=== PATIENT | female | born 1975 | race African-American/Black ===

== ENCOUNTER 2017-07-10 00:36 | Emergency (ER) | payer SELFPAY ==
[~2017-07-10] VITALS: Ht 170.2 cm; Wt 91.0 kg
[~2017-07-10 00:36] MED LIST: HYDR-3533 PO
[2017-07-10 00:43] VITALS: BP 146/86; PULSE 77; RESP 16; TEMP 98.8; O2SAT 100
[2017-07-10 03:39] VITALS: RESP 16
[2017-07-10 03:53] LABS: AUTOMATED NEUTROPHIL # 4.7 TH/MM3 (1.8-7.7); BASOPHIL % 0.1 % (0.0-2.0); EOSINOPHIL # 0.4 TH/MM3 (0-0.4); EOSINOPHIL % 5.1 % (0.0-4.0); HEMATOCRIT 32.5 % (35.0-46.0); HEMOGLOBIN 10.2 GM/DL (11.6-15.3); LYMPH % 31.4 % (9.0-44.0); LYMPHOCYTE # 2.6 TH/MM3 (1.0-4.8); MEAN CELL VOLUME 73.4 FL (80.0-100.0); MEAN CORPUSCULAR HGB CONC 31.4 % (32.0-36.0); MEAN PLATELET VOLUME 8.6 FL (7.0-11.0); MONO % 7.2 % (0.0-8.0); MONOCYTE # 0.6 TH/MM3 (0-0.9); NEUT % 56.2 % (16.0-70.0); PLATELET COUNT 411 TH/MM3 (150-450); RED BLOOD COUNT 4.43 MIL/MM3 (4.00-5.30); WHITE BLOOD COUNT 8.4 TH/MM3 (4.0-11.0)
--- NOTE | 2017-07-10 03:53 | PD ---
HPI Chief Complaint: GI Complaint Time Seen by Provider: 03:25 Travel History International Travel<30 days: No Contact w/Intl Traveler<30days: No Traveled to known affect area: No History of Present Illness HPI The patient is a 42 year old female who presents to the [facility] emergency department with a history of nausea and vomiting that began just after midnight today. She reports that she had vomiting back to back 3-4 times. She reports that the emesis appeared to have blood in it in the toilet. She then noticed that she had a nose bleed predominately out of the right naris when she stood up. She denies any history of nose bleeds. The patient denies having any recent worsening problems with indigestion or heartburn. She does report having a history of peptic ulcer disease and acid reflux which she has recently managed with as needed [id number] acid reducers. She denies having any abdominal pain. On review of systems otherwise, she denies having any recent fevers, cough, congestion, neck pain, chest pain, shortness of breath , diarrhea, blood in her stool, weight loss, urinary symptoms, or neurologic symptoms. LMP: 06/14/17 She denies having a PCP. [facility] Past Medical History Narrative Medical The patient's past medical history is significant for asthma, diabetes mellitus , acid reflux, history of preeclampsia, history of peptic ulcer disease Asthma: Yes (as a child) Autoimmune Disease: No Blood Disorders: No Anxiety: No Depression: No Heart Rhythm Problems: No Cancer: No Cardiovascular Problems: No High Cholesterol: No Chemotherapy: No Chest Pain: No Congestive Heart Failure: No Diabetes: Yes Diminished Hearing: No Endocrine: No Gastrointestinal Disorders: Yes GERD: Yes (STATES HAD ENDOSCOPY) Glaucoma: No Genitourinary: No Hepatitis: No Hiatal Hernia: No Hypertension: Yes (preg induced) Immune Disorder: No Kidney Stones: Yes Musculoskeletal: No Neurologic: No Psychiatric: No Reproductive: Yes (PRE-ECLAMPSIA) Respiratory: Yes Myocardial Infarction: No Radiation Therapy: No Ulcer: Yes (PT HAD AN ENDOSCOPY ) Tetanus Vaccination: > 5 Years Influenza Vaccination: No ?: Not LMP: 06/14/17 : 2 Para: 2 Past Surgical History Narrative Surgical The patient's past surgical history is significant for 2. AICD: No Arteriovenous Shunt: No Section: Yes (X2) Genitourinary Surgery: No Insulin Pump: No Joint Replacement: No Pacemaker: No Other Surgery: No Social History Alcohol Use: No Tobacco Use: Yes (1/2 ppd.) Substance Use: No Allergies-Medications (Allergen,Severity, Reaction): Coded Allergies: No Known Allergies (Verified , 06/13/15) Reported Meds & Prescriptions Reported Meds & Active Scripts Active Lortab 5 mg/325 mg (Hydrocodone/Acetaminophen 5 mg/325 mg) 1 Tab 1 Tab PO Q6H PRN Review of Systems Except as stated in HPI: all other systems reviewed are Neg General / Constitutional: No: Fever Eyes: No: Visual changes HENT: Positive: Nosebleed, No: Headaches Cardiovascular: No: Chest Pain or Discomfort Respiratory: No: Shortness of Breath Gastrointestinal: Positive: Nausea, Vomiting, Hematemesis, No: Abdominal Pain, Indigestion Genitourinary: No: Dysuria Musculoskeletal: No: Pain Skin: No Rash Neurologic: No: Weakness Psychiatric: No: Depression Endocrine: No: Polydipsia Hematologic/Lymphatic: No: Easy Bruising Physical Exam Narrative General: The patient is a well-developed well-nourished male in no acute distress Head and Neck exam: Head is normocephalic atraumatic. Eyes: EOMI, pupils are equal round and reactive to light. Nose: Midline septum with pink mucous membranes with dried blood present in the right naris. Mouth: Dentition unremarkable. Moist mucus membranes. Posterior oropharynx is not erythematous. No tonsillar hypertrophy. Uvula midline. Airway patent. Neck: No palpable lymphadenopathy. No nuchal rigidity. No thyromegaly. Cardiovascular: Regular rate and rhythm without murmurs, gallops, or rubs. Lungs: Clear to auscultation bilaterally. No wheezes, rhonchi, or rales. Abdomen: Soft, without tenderness to palpation in all 4 quadrants of the abdomen. No guarding, rebound, or rigidity. Normal bowel sounds are audible. No tenderness on palpation of McBurney's point. Negative Mendez sign. Extremities: No clubbing, cyanosis, or edema. 2+ pulses in all 4 extremities. No calf tenderness on palpation. Back: No spinous process tenderness to palpation. No costovertebral angle tenderness to palpation. Neurologic Exam: Grossly nonfocal. Skin Exam: No rash noted. Intact skin that is warm and dry. Data Data Last Documented VS Vital Signs Date Time Temp Pulse Resp B/P (MAP) Pulse Ox O2 Delivery O2 Flow Rate FiO2 07/10/17 03:39 16 07/10/17 00:43 98.8 77 100 Room Air Orders Orders Electrocardiogram (07/10/17 03:25) Complete Blood Count With Diff (07/10/17 03:25) Comprehensive Metabolic Panel (07/10/17 03:25) Prothrombin Time / Inr (Pt) (07/10/17 03:25) Act Partial Throm Time (Ptt) (07/10/17 03:25) Lipase (07/10/17 03:25) Urinalysis - C+S If Indicated (07/10/17 03:25) Chest, Single Ap (07/10/17 03:25) Iv Access Insert/Monitor (07/10/17 03:25) Ecg Monitoring (07/10/17 03:25) Oximetry (07/10/17 03:25) Type And Screen (07/10/17 03:25) Ed Urine Pregnancytest Poc (07/10/17 03:25) Pantoprazole Inj (Protonix Inj) (07/10/17 04:15) Pantoprazole Inj (Protonix Inj) (07/10/17 04:15) Sodium Chlor 0.9% 1000 Ml Inj (Ns 1000 M (07/10/17 04:15) Ondansetron Inj (Zofran Inj) (07/10/17 04:15) Labs Laboratory Tests Test 07/10/17 03:10 07/10/17 03:40 Urine Color YELLOW Urine Turbidity CLEAR Urine pH 5.5 Urine Specific [place] 1.033 Urine Protein TRACE mg/dL Urine Glucose (UA) TRACE mg/dL Urine Ketones NEG mg/dL Urine Occult Blood NEG Urine Nitrite NEG Urine Bilirubin NEG Urine Urobilinogen 2.0 MG/DL Urine Leukocyte Esterase MOD Urine RBC LESS THAN 1 /hpf Urine WBC 2 /hpf Urine Squamous Epithelial Cells 4 /hpf Urine Bacteria RARE /hpf Urine Hyaline Casts 2 /lpf Urine Mucus FEW /lpf Microscopic Urinalysis Comment CULT NOT INDICATED White Blood Count 8.4 TH/MM3 Red Blood Count 4.43 MIL/MM3 Hemoglobin 10.2 GM/DL Hematocrit 32.5 % Mean Corpuscular Volume 73.4 FL Mean Corpuscular Hemoglobin 23.0 PG Mean Corpuscular Hemoglobin Concent 31.4 % Red Cell Distribution Width 16.0 % Platelet Count 411 TH/MM3 Mean Platelet Volume 8.6 FL Neutrophils (%) (Auto) 56.2 % Lymphocytes (%) (Auto) 31.4 % Monocytes (%) (Auto) 7.2 % Eosinophils (%) (Auto) 5.1 % Basophils (%) (Auto) 0.1 % Neutrophils # (Auto) 4.7 TH/MM3 Lymphocytes # (Auto) 2.6 TH/MM3 Monocytes # (Auto) 0.6 TH/MM3 Eosinophils # (Auto) 0.4 TH/MM3 Basophils # (Auto) 0.0 TH/MM3 CBC Comment DIFF FINAL Differential Comment Prothrombin Time 10.7 SEC Prothromb Time International Ratio 1.1 RATIO Activated Partial Thromboplast Time 25.5 SEC Blood Urea Nitrogen 14 MG/DL Creatinine 0.75 MG/DL Random Glucose 184 MG/DL Total Protein 7.9 GM/DL Albumin 3.7 GM/DL Calcium Level 8.6 MG/DL Alkaline Phosphatase 118 U/L Aspartate Amino Transf (AST/SGOT) 24 U/L Alanine Aminotransferase (ALT/SGPT) 24 U/L Total Bilirubin 0.5 MG/DL Sodium Level 138 MEQ/L Potassium Level 4.2 MEQ/L Chloride Level 105 MEQ/L Carbon Dioxide Level 24.4 MEQ/L Anion Gap 9 MEQ/L Estimat Glomerular Filtration Rate 104 ML/MIN Lipase 143 U/L MDM Medical Decision Making Medical Screen Exam Complete: Yes Emergency Medical Condition: Yes Medical Record Reviewed: Yes Interpretation(s) Last Impressions Chest X-Ray 07/10/17 0325 Signed Impressions: Service Date/Time: Monday, July 10, 2017 03:47 - CONCLUSION: No acute disease. Luis Richard MD Differential Diagnosis Epistaxis causing drainage down the back of her throat with nausea and vomiting , versus peptic ulcer disease, versus hemorrhagic esophagitis, versus viral syndrome Narrative Course During the course of the patient's emergency department visit, the patient's history, examination, and differential diagnosis were reviewed with the patient. The patient was placed on a sales account executive with oximetry and frequent blood pressure monitoring. The patient had IV access obtained and blood work sent for analysis. The patient was initially provided normal saline 1 L IV fluid bolus, Zofran 4 mg IV. The patient's laboratory studies were reviewed and remarkable for a white count of 8.4, hemoglobin 10.2 which is stable compared to previous evaluations, platelets are 411, 5.1 eosinophils are noted. CMP is remarkable for a glucose of 184, alk phos 118, lipase 143, PT 10.7, PTT 25.5, urinalysis shows moderate leukocyte esterase 2 WBCs, less than 1 RBC, rare bacteria, culture not indicated. Radiology studies were reviewed and remarkable for a chest x-ray that shows no evidence of acute cardiopulmonary disease. I suspect that the patient's nausea was related to having a nosebleed that was draining down the back of her throat and then precipitated vomiting at which time she noticed the right-sided epistaxis. The patient's bleeding has resolved at this time. The patient was instructed to push fluids and get plenty of rest. The patient is given a prescription for nausea medication. The patient will be discharged home. The patient is resting comfortably and feels better, is alert and in no distress. The patient's results and examination findings were discussed with the patient. The repeat examination is unremarkable and benign. The history, exam, diagnostic testing, and current condition do not suggest any significant pathology to warrant further testing, continued ED treatment, admission, or surgical evaluation at this point. The vital signs have been stable. The patient does not have uncontrollable pain, intractable vomiting, or other significant symptoms. The patient's condition is stable and appropriate for discharge. The patient will pursue further outpatient evaluation with a primary care physician or other designated or consulting physician as indicated in the discharge instructions. The patient expressed understanding and was agreeable with this plan. Diagnosis Primary Impression: Epistaxis Additional Impression: Vomiting Qualified Codes: R11.2 - Nausea with vomiting, unspecified Referrals: [facility] 2 days Primary Care Physician 2 days Patient Instructions: General Instructions, Nosebleed (ED) Med/Other Pt SpecificInfo: Prescription(s) given Scripts Ondansetron Odt (Zofran Odt) 4 Mg Tab 4 MG SL Q6HR Y for Nausea/Vomiting, #7 TAB 0 Refills Prov: Laura Hernandez MD 07/10/17 Disposition: 01 DISCHARGE HOME Condition: Stable Laura Hernandez MD Jul 10, 2017 03:53
--- NOTE | 2017-07-10 04:02 | RADRPT ---
EXAM DATE/TIME: 07/10/2017 03:47 [place] COMPARISON: No previous studies available for comparison. INDICATIONS : Vomiting blood. Short of breath. MEDICAL HISTORY : None. SURGICAL HISTORY : None. ENCOUNTER: Initial ACUITY: 1 day PAIN SCORE: 0/10 LOCATION: Bilateral chest FINDINGS: A single view of the chest demonstrates the lungs to be symmetrically aerated without evidence of mas s, infiltrate or effusion. The cardiomediastinal contours are unremarkable. Osseous structures are intact. CONCLUSION: No acute disease. Luis Richard MD on July 10, 2017 at 4:00 Board Certified Radiologist. This report was verified electronically.
[2017-07-10 04:03] LABS: INTERNATIONAL NORMALIZED RATIO 1.1 RATIO; PROTHROMBIN TIME - PATIENT 10.7 SEC (9.8-11.6)
[2017-07-10 04:11] LABS: ALBUMIN 3.7 GM/DL (3.4-5.0); ALT (GPT) 24 U/L (10-53); AST (GOT) 24 U/L (15-37); BICARBONATE 24.4 MEQ/L (21.0-32.0); BLOOD UREA NITROGEN 14 MG/DL (7-18); CALCIUM 8.6 MG/DL (8.5-10.1); CHLORIDE 105 MEQ/L (98-107); CREATININE 0.75 MG/DL (0.50-1.00); GLOMERULAR FILTRATION RATE 104 ML/MIN (>89); GLUCOSE,RANDOM 184 MG/DL (74-106); SODIUM (NA) 138 MEQ/L (136-145)
[2017-07-10 04:13] LABS: ALKALINE PHOSPHATASE 118 U/L (45-117); TOTAL BILIRUBIN ADULT 0.5 MG/DL (0.2-1.0); TOTAL PROTEIN 7.9 GM/DL (6.4-8.2)
[2017-07-10] MEDS ORDERED: PANTOPRAZOLE INJ 80 MG in SODIUM CHLORIDE 0.9% INJ 100 ML IV SCH (04:15)
[2017-07-10] MEDS ORDERED: ONDANSETRON HCL 4 MG/2 ML VIAL IV PUSH ONE (04:15)
[2017-07-10] MEDS ORDERED: PANTOPRAZOLE INJ 80 MG in SODIUM CHLORIDE 0.9% INJ 35 ML IV ONE (04:15)
[2017-07-10] MEDS ORDERED: SODIUM CHLOR 0.9% 1000 ML INJ 1,000 ML IV ONE (04:15)
[2017-07-10 04:59] LABS: BACTERIA, URINE RARE /hpf; BILIRUBIN, URINE NEG (NEG); BLOOD, URINE NEG (NEG); GLUCOSE,URINE TRACE mg/dL (NEG); HYALINE CAST, URINE 2 /lpf (RARE); KETONE, URINE NEG (NEG); MUCUS URINE FEW /lpf (OCC); NITRITE,URINE NEG (NEG); PH, URINE 5.5 (5.0-8.5); SQUAMOUS EPITHELIAL CELL URINE 4 /hpf (0-5); URINE COLOR YELLOW (YELLW/STRAW); URINE LEUKOCYTE ESTERASE MOD (NEG)
[2017-07-10] MEDS ORDERED: ZOFR4TAB3 SL (05:15)
== END 2017-07-10 05:54 | disposition home or self-care (01) ==
LOC: NEPC 00:36
DX: R04.0 Epistaxis (principal); R11.2 Nausea with vomiting, unspecified; K21.9 Gastro-esophageal reflux disease without esophagitis; J45.909 Unspecified asthma, uncomplicated; E11.9 Type 2 diabetes mellitus without complications; I10 Essential (primary) hypertension; F17.200 Nicotine dependence, unspecified, uncomplicated; Z87.442 Personal history of urinary calculi; Z87.19 Personal history of other diseases of the digestive system
CPT/HCPCS: 71045; 80053; 81001; 83690; 84703; 85025; 85610; 85730; 86850; 86900; 86901; 96361; 96374; 99285; J2405; J7030